=== PATIENT | female | born 1980 | race Caucasian/White ===

== ENCOUNTER 2023-01-24 14:35 | Emergency (ER) | payer SELFPAY ==
[2023-01-24 14:43] VITALS: BP 172/101; PULSE 97; RESP 20; TEMP 36.2; O2SAT 100
--- NOTE | 2023-01-24 14:44 | ED.SKABFB ---
HPI - Skin/Abscess/Foreign Bdy General Chief complaint: Skin/Abscess/Foreign Body Stated complaint: Insect Bites/ Legs Source: patient and RN notes reviewed History of Present Illness HPI narrative: 42 yo F presents to urgent care with complaints of flea bites to her bilateral lower legs. Pt states she went to feed a friend's dog 2 days ago and she being attacked by fleas there. Pt states she saw them and was picking them off of herself. Denies any fevers, chills, chest pain, SOB, vomiting, or other complaints. Pt reports pruritis in her lower extremities. Pt also requesting a Rx for her Ventolin that she is almost out of. Related Data Allergies Allergy/AdvReac Type Severity Reaction Status Date / Time No Known Allergies Allergy Verified 01/24/23 14:59 Review of Systems Review of Systems: Pertinent positives and pertinent negatives per HPI. PMFSH Comments At the time of my signature, I reviewed and agree with the nursing past medical, surgical, social, and family history. There is no relevant family history pertinent to the patient complaint. Exam Narrative: GENERAL: This is a well-nourished, well-developed patient, in no apparent distress. HEAD: normocephalic, atraumatic. EYES: Sclera clear/white. Vision is grossly intact. EARS: External ears normal, auditory canals clear and without drainage. Hearing grossly intact. NOSE: External nose normal with no obvious nasal discharge, nares without redness, no rhinorrhea. THROAT: Mucous membranes moist, posterior pharynx clear. NECK: Neck supple, non-tender without lymphadenopathy, masses or thyromegaly. CARDIOVASCULAR: Regular rate and rhythm without murmurs, gallops, or rubs. RESPIRATORY: Clear to auscultation. Breath sounds equal bilaterally. No wheezes, rales, or rhonchi. GASTROINTESTINAL: Abdomen soft, non-tender, nondistended. Bowel sounds are active. No hepato-splenomegaly, or palpable masses. No guarding. SKIN: flea bites to bilateral lower extremities. NEURO: awake, alert, and oriented to person, place and time. There were no obvious focal neurologic abnormalities. EXTREMITIES: No clubbing, cyanosis, or edema. No joint tenderness, effusion, or edema noted. BACK: Nontender without deformity or crepitus. No flank tenderness. Course Course Level of Care: Express Care Visit Vital Signs Vital signs: reviewed [facility] - Skin/Abscess/Foreign Bdy MDM Narrative Medical decision making narrative: Take the antibiotics and steroids as directed. Go to the ER with any new or worsening symptoms. Follow up with mechanical car checker. Differential Diagnosis Differential diagnosis: Likely urticaria, cellulitis and insect bites Critical Care Time Critical Care Time Critical Care Time: No Discharge Plan Discharge Clinical Impression: Insect bites Qualifiers: Encounter type: initial encounter Site of insect bite: lower leg Laterality: unspecified laterality Qualified Code(s): S80.869A - Insect bite (nonvenomous), unspecified lower leg, initial encounter Patient Disposition: Home, Self-Care Condition: Stable Instructions: Antibiotic Form, Insect Bite or Sting (ED) Additional Instructions: Take the antibiotics and steroids as directed. Go to the ER with any new or worsening symptoms. Follow up with mechanical car checker. Prescriptions: New prednisone 20 mg tablet 40 mg PO DAILY 5 Days Qty: 10 0RF cephalexin 500 mg capsule 500 mg PO Q12H 7 Days Qty: 14 0RF albuterol sulfate [Ventolin HFA] 90 mcg/actuation HFA aerosol inhaler 1 inh inhalation Q4-6H PRN (Reason: shortness of breath or wheezing) Qty: 8.5 0RF Follow-up/Referrals: PHYSICIAN,MAINTENANCE [facility] [Primary Care Provider] - Stand Alone Forms: Work/School Release IP Time of Disposition: 14:58
== END 2023-01-24 15:04 | disposition home or self-care (01) ==
PROVIDERS: Emergency Provider Nurse Practitioner Family
DX: S80.862A Insect bite (nonvenomous), left lower leg, initial encounter (principal); S80.861A Insect bite (nonvenomous), right lower leg, initial encounter; W57.XXXA Bitten or stung by nonvenomous insect and other nonvenomous arthropods, initial encounter; I10 Essential (primary) hypertension; J44.9 Chronic obstructive pulmonary disease, unspecified
CPT/HCPCS: 99213; G0463